=== PATIENT | female | born 1940 | race African-American/Black ===

== ENCOUNTER 2019-06-08 06:35 | Inpatient (IN) | payer BC, OTHER ==
[~2019-06-08] VITALS: Ht 170.2 cm; Wt 86.6 kg
[2019-06-08] VITALS (7 sets, daily range): BP systolic 106–180; BP diastolic 56–113
[2019-06-08 07:21] LABS: ABSOLUTE NEUTROPHILS 7.3 thou/uL (1.4-8.2); BASOPHILS 0.9 % (0.0-2.0); EOSINOPHILS 1.2 % (0.0-3.0); HEMATOCRIT 39.2 % (37.0-47.0); HEMOGLOBIN 12.7 gm/dL (12.0-15.0); LYMPHOCYTES 16.4 % (24.0-44.0); MCH 27.1 pg (26.0-34.0); MCHC 32.5 g/dL (28.0-37.0); MCV 83.3 fL (80.0-100.0); MONOCYTES 4.7 % (1.0-8.0); PLATELET COUNT 221 thou/uL (150-400); POLYS 76.8 % (36.0-66.0); RDW 15.4 % (10.5-14.5); WBC 9.5 thou/uL (4.0-11.0)
[2019-06-08 07:27] LABS: URINE BILIRUBIN NEGATIVE (Negative); URINE BLOOD 1+ (Negative); URINE CLARITY CLEAR; URINE COLOR YELLOW; URINE GLUCOSE-RANDOM* NEGATIVE (Negative); URINE KETONES NEGATIVE (Negative); URINE LEUKOCYTES-REFLEX NEGATIVE (Negative); URINE NITRITE-REFLEX NEGATIVE (Negative); URINE PROTEIN (DIPSTICK) NEGATIVE (Negative); URINE SPECIFIC GRAVITY 1.015 (1.005-1.035); URINE UROBILINOGEN 0.2 E.U./dl (0.2-1.0)
[2019-06-08 07:44] LABS: BACTERIA-REFLEX None Seen /HPF (None Seen); CASTS None Seen /LPF (None Seen); CRYSTALS None Seen /LPF (None Seen); SQUAMOUS None Seen /LPF (0-3); URINE RBC 3-10 Few /HPF (0-2); URINE WBC-REFLEX None Seen /HPF (0-5)
[2019-06-08 08:23] LABS: ALBUMIN 3.3 g/dL (3.4-5.0); CALCIUM 8.1 mg/dL (8.5-10.1); CREATININE 0.7 mg/dL (0.6-1.0); POTASSIUM 3.4 mmol/L (3.5-5.1); TOTAL BILIRUBIN 0.3 mg/dL (<0.1-1.0); TOTAL PROTEIN 7.3 g/dL (6.4-8.2)
--- NOTE | 2019-06-08 11:33 | EKG ---
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 : 1940 Requested By: Kentrell Beavers Order Number: [id number] MD: Greg Ortiz Measurements Intervals [place] Rate: 85 P: 35 WA: 189 QRS: 30 QRSD: 81 T: 55 QT: 359 QTc: 427 Interpretive Statements Sinus rhythm Probable left atrial enlargement Probable left ventricular hypertrophy Anterior Q waves, possibly due to LVH Compared to ECG 05/13/2003 17:04:49 Left ventricular hypertrophy now present Q waves now present Poor R-wave progression no longer present T-wave abnormality no longer present Electronically Signed On 06-08-2019 11:32:57 CDT by Greg Ortiz [email or web address] <ELECTRONICALLY SIGNED> By: Greg Ortiz MD 06/08/19 1132 [id number] Greg Ortiz MD /EPI
[2019-06-08 11:48] LABS: APTT 29.8 Seconds (24.5-32.8)
--- NOTE | 2019-06-08 13:58 | NUR ---
VAT CONSULTED FOR A CL FOR THIS PT IN THE ER. PT TO GO TO 247 WITH A AORTIC DISSECTION. 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
--- NOTE | 2019-06-08 16:13 | NUR ---
VAT CALLED FOR A CL FOR AORTIC DISSECTION AND ICU MEDS. 5FRTLPICC PLACED RUABRACHIAL SUCCESSFULLY WITH TIP AT THE CA[facility]. PLEASE SEE INSERTION N/I FOR DETAILS
--- NOTE | 2019-06-08 20:00 | NUR ---
Admission notes 1454-Pt came to ICU via cart. A-line site was oozing. Zeroed A-line and enforced the dressing. Pt was alert, oriented x 4. Followed commands appropriately and pleasantly. O2 sat 93 to 96% at RA. BP 140s. Esmolol was initiated as soon as pt arrived @50mcg/kg/min @1513. It was increased to 100 mcg @[address] Payton at bedside. Cardene was started @1546 @15mg, the max dose then was titrated based on BP. No edema was present. Pt used bedpan due to lines. PICC line was inserted @1530. Dr. Antonio was at bedside @1727. Pt ate dinner @1830 about 50%.
[2019-06-09] VITALS (17 sets, daily range): BP systolic 100–148; BP diastolic 55–92
--- NOTE | 2019-06-09 05:17 | NUR ---
ON ESMOLOL AND CARDENE GTTS FOR AORTIC DISSECTION TYPE B. GTTS TITRATED TO MAINTAIN SBP <110 AND HR <80. PT DENIES PAIN. WILL CONTINUE TO MONITOR AND FOLLOW THE PLAN OF CARE.
--- NOTE | 2019-06-09 07:56 | HC ---
[facility] [place] [address] CONSULTATION Name: CARMEL DUMONT Kris Room #: 247-P [facility] IN ..#: [id number] Admission: 06/08/19 Attend Phys: Maura So MD Discharge: Date of : 42 Report #: [id number] THIS REPORT FOR: //name// CC: FAM unknown Blaze Payton Maura So DATE OF SERVICE: 06/08/2019 We were asked to see the patient in the Emergency Department for question of aortic dissection. HISTORY OF PRESENT ILLNESS: The patient is a 79-year-old who noted the acute onset of epigastric discomfort at approximately 3:00 a.m. Over the course of the morning, the pain migrated to the back and continued to radiate around the torso anteriorly. The patient denies problems with focal weakness and there is no history of syncope or chest pain per se. CT scan shows intramural thrombus in the descending thoracic aorta with an area of penetrating ulcer, but no extravasation and no acute flap is noted. No impairment of visceral vessels is seen. The patient states that she has had back pain for which physical therapy has been recommended, but this is somewhat different than the discomfort that she had today. PAST MEDICAL HISTORY: The patient denies other medical diagnoses. The patient states she takes no medication at home. ALLERGIES: INCLUDE IODINE AND CIPRO. SOCIAL HISTORY: The patient is not a smoker. She is . No alcohol or recreational drug use. FAMILY HISTORY: Negative for aneurysm. REVIEW OF SYSTEMS: CONSTITUTIONAL: Negative for fever or chills. EYES: Negative for eye pain or visual change. HEENT: Negative for rhinorrhea or sore throat. RESPIRATORY: No shortness of breath described to me. No sputum production. CARDIAC: Denies chest pain or palpitation. GASTROINTESTINAL: Had some nausea earlier. No vomiting, no blood. MUSCULOSKELETAL: The back pain as described. No other bone or joint pain. SKIN: No rash or infection. GENITOURINARY: No burning, frequency, urgency. [facility] [address] [place] [address] CONSULTATION Name: CARMEL DUMONT Room #: 247-P [facility] IN [facility].#: [id number] Admission: 06/08/19 Attend Phys: Maura So MD Discharge: Date of : 42 Report #: [id number] ENDOCRINE: No goiter, no tremor. HEMATOLOGIC AND LYMPHATIC: No bruising or bleeding. PHYSICAL EXAMINATION: VITAL SIGNS: In the Emergency Department, blood pressure 180/113, heart rate 87, respiratory rate 18, temperature 36.4. GENERAL: The patient is lying in bed, seems to be in reasonable comfort. HEENT: Normocephalic. Pupils are round, equal. No icterus, no arcus. NECK: No mass, no bruit. CHEST: Clear to auscultation. HEART: Rhythm regular, no murmur. ABDOMEN: Soft, no mass. EXTREMITIES: No clubbing, cyanosis or edema. VASCULAR: 2 to 3+ popliteal pulses bilaterally. I do not feel distal pulses, but there is no vascular compromise. Radial pulses are 2+ bilaterally. MUSCULOSKELETAL: No asymmetry or deformity. NEUROLOGIC: No obvious motor or sensory dysfunction. PSYCHIATRIC: Oriented x3 and appropriate. ASSESSMENT: CT scan suggests at least a subacute or chronic dissection with possible penetrating ulcer in the descending thoracic aorta. At this point, I would recommend aggressive blood pressure control including placement of an arterial line and IV Cardene for blood pressure control and esmolol for heart rate control with transition to oral agents as soon as possible, but guided by the arterial line reading. If the patient has persistent pain despite aggressive and successful medical management then stent graft can be considered, but this has its own problems including always the risks of bleeding, infection, anesthesia, risks of surgery plus potential spinal artery disruption and neurologic sequela. All of this was reviewed with the patient and family and with Dr. So, we will follow. Thank you for the consult. <ELECTRONICALLY SIGNED> By: Blaze Payton MD 06/09/19 0756 1231 [id number] Blaze Payton MD /nt
--- NOTE | 2019-06-09 08:02 | NUR ---
Pt is alert, oriented x 4. No pain, nausea, or other concerns were voiced. Sat is 94%. SR w/ 1 Degree AVB w/ HR 70s. Esmolol & Cardene gtt in place. Pt got out of bed and sat on recliner this morning. Dr. Payton has been at bedside @9702. Will continue to monitor
[2019-06-10] VITALS (11 sets, daily range): BP systolic 108–157; BP diastolic 59–82
--- NOTE | 2019-06-10 10:20 | 2DMMODE ---
[facility] [address] [place] [address] 2 D/M-MODE ECHOCARDIOGRAM Name: CARMEL DUMONT Room #: 247-P [facility] IN ..#: [id number] Admission: 06/08/19 Attend Phys: Maura So Discharge: Date of : 42 Report #: [id number] THIS REPORT FOR: //name// APPROVED REPORT Study performed: 06/10/2019 08:12:26 EXAM: Comprehensive 2D, Doppler, and color-flow Echocardiogram Patient Location: Bedside Room #: [facility] BSA: 1.95 HR: 75 bpm BP: 136/77 mmHg Rhythm: NSR Other Information Study Quality: Adequate Indications dissection 2D Dimensions RVDd: 28.68 mm IVSd: 16.24 (7-11mm) LVOT Diam: 21.86 (18-24mm) LVDd: 37.58 mm PWd: 14.79 (7-11mm) Ascending Ao: 38.66 (22-36mm) LVDs: 27.38 (25-40mm) Aortic Root: 33.46 mm IVC: 15.00 mm Volumes Left Atrial Volume (Systole) Single Plane 4CH: 32.33 mL Single Plane 2CH: 42.26 mL LA ESV Index: 22.00 mL/m2 Aortic Valve AoV Peak Tung.: 1.54 m/s AO Peak Gr.: 9.46 mmHg LVOT Max P.07 mmHg LVOT Max V: 1.01 m/s ELLIOT Vmax: 2.46 cm2 Mitral Valve E/A Ratio: 0.7 MV Decel. Time: 232.71 ms MV E Max Tung.: 0.88 m/s [facility] [address] [place] [address] 2 D/M-MODE ECHOCARDIOGRAM Name: CARMEL DUMONT Room #: 247-P [facility] IN [facility]#: [id number] Admission: 06/08/19 Attend Phys: Maura So Discharge: Date of : 42 Report #: [id number] MV A Tung.: 1.19 m/s MV PHT: 67.49 ms IVRT: 100.35 ms Pulmonary Valve PV Peak Tung.: 0.90 m/s PV Peak Gr.: 3.28 mmHg Pulmonary Vein P Vein S: 0.66 m/s P Vein A: 0.30 m/s P Vein D: 0.52 m/s P Vein A Dur.: 117.6 msec P Vein S/D Ratio: 1.27 Tricuspid Valve TR Peak Tung.: 2.44 m/s RAP Estimate: 5.00 mmHg TR Peak Gr.: 23.84 mmHg PA Pressure: 29.00 mmHg Left Ventricle The left ventricle is normal size. Moderate concentric left ventricular hypertrophy. The left ventricular systolic function is normal. The left ventricular ejection fraction is within the normal range. LVEF is 65%. Mild diastolic dysfunction is present (impaired relaxation pattern). Right Ventricle The right ventricle is normal size. The right ventricular systolic function is normal. Atria The left atrium size is normal. The right atrium size is normal. Aortic Valve The aortic valve is normal in structure. No aortic regurgitation is present. There is no aortic valvular stenosis. Mitral Valve The mitral valve is normal in structure. Trace mitral regurgitation. No evidence of mitral valve stenosis. Tricuspid Valve The tricuspid valve is normal in structure. Trace tricuspid regurgitation. PAP is estimated at 29 mmHg Pulmonic Valve Pulmonic valve is not well visualized. [facility] [address] [place] [address] 2 D/M-MODE ECHOCARDIOGRAM Name: CARMEL DUMONT Room #: 247-P [facility] IN [facility].#: [id number] Admission: 06/08/19 Attend Phys: Maura So Discharge: Date of : 42 Report #: [id number] [employer] The aortic root is normal in size. The ascending aorta is mildly dilated at 3.9 cm. Aortic arch is mildly dilated at 4.2 cm. Aorticdilatation consistent with a dissection is present in descending aorta measuring 5 cm. IVC is normal in size and collapses >50% with inspiration. Pericardium There is no pericardial effusion. <Conclusion> The left ventricle is normal size. LVEF is 65%. The aortic valve is normal in structure. The mitral valve is normal in structure. Trace mitral regurgitation. The tricuspid valve is normal in structure. Trace tricuspid regurgitation. PAP is estimated at 29 mmHg Pulmonic valve is not well visualized. The aortic root is normal in size. The ascending aorta is mildly dilated at 3.9 cm. Aortic arch is mildly dilated at 4.2 cm. Aorticdilatation consistent with a dissection or aneurysm is present in descending aorta measuring 5 cm. There is no pericardial effusion. <ELECTRONICALLY SIGNED> By: Raymundo Hwang MD 06/10/19 1019 1019 1019 Raymundo Hwang MD /INF
--- NOTE | 2019-06-10 11:00 | NUR ---
Victorina DAN from cardiology called. RE BP goal met but HR remains 87.
[2019-06-10 15:04] LABS: CHOLESTEROL 147 mg/dL (<200); HDL CHOLESTEROL 72 mg/dL (>40); LDL CHOLESTEROL 66 mg/dL (<100); TRIGLYCERIDE 48 mg/dL (<150); VLDL 10 mg/dL (<40)
--- NOTE | 2019-06-10 18:00 | NUR ---
DR. CHISHOLM CALLED. RE T 101.5 ORALLY AND HR UP TO 102 ORDERS GIVEN.
--- NOTE | 2019-06-10 19:32 | NUR ---
KEEPING SBP < 130 AND HR < 70. dr. briceno aware hr staying in the 80s.
--- NOTE | 2019-06-10 21:20 | NUR ---
DR GUTHRIE HERE TO DISCUSS SURGERY TOMORROW. CONSENT SIGNED. PT DID NOT HAVE ANY FURTHER QUESTIONS AT THIS TIME. SEE [facility] FOR ASSESSMENT. CONT PLAN OF CARE
[2019-06-11] VITALS: BP 116/65
[2019-06-11 05:37] LABS: CALCIUM 9.1 mg/dL (8.5-10.1); CREATININE 0.9 mg/dL (0.6-1.0); POTASSIUM 3.4 mmol/L (3.5-5.1)
[2019-06-11 05:38] LABS: URINE BILIRUBIN NEGATIVE (Negative); URINE BLOOD TRACE (Negative); URINE CLARITY CLEAR; URINE COLOR YELLOW; URINE GLUCOSE-RANDOM* NEGATIVE (Negative); URINE KETONES NEGATIVE (Negative); URINE NITRITE-REFLEX NEGATIVE (Negative); URINE PROTEIN (DIPSTICK) TRACE (Negative); URINE SPECIFIC GRAVITY 1.015 (1.005-1.035); URINE UROBILINOGEN 0.2 E.U./dl (0.2-1.0)
[2019-06-11 05:41] LABS: HEMATOCRIT 37.3 % (37.0-47.0); MCH 26.8 pg (26.0-34.0); MCHC 32.1 g/dL (28.0-37.0); MCV 83.5 fL (80.0-100.0); PLATELET COUNT 240 thou/uL (150-400); RBC 4.47 mil/uL (4.20-5.00); RDW 15.2 % (10.5-14.5); WBC 12.5 thou/uL (4.0-11.0)
[2019-06-11 05:52] LABS: URINE LEUKOCYTES-REFLEX 1+ (Negative)
[2019-06-11 06:18] LABS: HYALINE CASTS 0-3 Few /LPF (None Seen); MUCUS 0-3 Light strn/LPF (None Seen)
[2019-06-11 06:19] LABS: BACTERIA-REFLEX 1-9 Few /HPF (None Seen); CRYSTALS None Seen /LPF (None Seen); FINE GRANULAR CASTS 0-3 Few /LPF (None Seen); SQUAMOUS 0-3 Few /LPF (0-3); URINE RBC 0-2 Rare /HPF (0-2)
[2019-06-11 07:37] LABS: ABSOLUTE NEUTROPHILS 9.9 thou/uL (1.4-8.2); ANISOCYTOSIS 1+
--- NOTE | 2019-06-11 09:34 | NUR ---
PATIENT LEFT UNIT AT 0934 TO PACU FOR SURGERY.
--- NOTE | 2019-06-11 13:26 | NUR ---
CM ASSESSMENT: CASE OPENED FOR DC PLANNING. CLINICAL INFO REVIEWED. PT ADMITS WITH HTN AND IMAGING NOTED ATHORACIC AORTIC DISSECTION. CTS CONSULTED AND PLANS FOR THORACIC AORTIC STENT GRAFT TODAY. 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 WILL FOLLOW POST OPERATIVE COURSE AND ASSIST WITH COORDINATION OF DC NEEDS.
--- NOTE | 2019-06-11 19:51 | NUR ---
ASSESSMENTS AND INTERVENTIONS DOCCUMENTED. PATIENT WENT FOR THORACIC SURGERY. PATIENT RETURNED TO THE ROOM AT ABOUT 1615. PATIENT ARRIVED AND WAS A&O X 4 ON 2L NC . PATIENT SITUATED AND CVP, ART AND LUMBAR DRAINAGE LEVELED AND ZEROED. PATIENT WAS EDUCATED ABOUT POST OP RESTRICTIONS. BACK OF PATIENT CHECKED FOR DRAINAGE, REDNESS OR EDEMA. SMALL BLOOD NOTED. SON CALLED TO BED SIDE. CVP LOW, MARIANA RN ADMINSITERED ALBUMIN. PATIENT RESTING AT THIS TIME. INVESTIGATOR WELFARE RN GIVEN REPORT.
[2019-06-11 21:00] VITALS: BP 150/66
[2019-06-11 23:00] VITALS: BP 139/66
[2019-06-12] VITALS (11 sets, daily range): BP systolic 143–174; BP diastolic 58–94
[2019-06-12 05:28] LABS: ABSOLUTE NEUTROPHILS 16.1 thou/uL (1.4-8.2); BASOPHILS 0.3 % (0.0-2.0); HEMATOCRIT 33.7 % (37.0-47.0); HEMOGLOBIN 10.8 gm/dL (12.0-15.0); LYMPHOCYTES 2.9 % (24.0-44.0); MCHC 32.2 g/dL (28.0-37.0); MCV 83.9 fL (80.0-100.0); MONOCYTES 8.5 % (1.0-8.0); PLATELET COUNT 190 thou/uL (150-400); POLYS 88.3 % (36.0-66.0); RBC 4.01 mil/uL (4.20-5.00); RDW 15.1 % (10.5-14.5); WBC 18.2 thou/uL (4.0-11.0)
--- NOTE | 2019-06-12 05:28 | NUR ---
PT AOX4. HOURLY NUERO CHECKS PERFORMED. FOLLOW COMMANDS AND ABLE TO MOVE EXTREMITIES. DENIES PAIN. DESATS DURING SLEEP, ON 2L NC CURRENTLY. LUMBAR DRAIN IN PLACE, ICP MONITORED AND DOCUMENTED. RIGHT ARTLINE IN PLACE, RIGHT FOREARM/HAND EDEMA NOTED. RIGHT GROIN SITE C/D/I, PT STATED THERE WAS TENDERS WHEN SITE WAS PALPATED. ON CARDENE GTT, TITRATED FOR BP CONTROL. NO COMPLAINS PRESENTLY. WILL CONTINUE TO MONITOR PT. PROGRESSING TOWARDS GOALS
[2019-06-12 05:38] LABS: ALBUMIN 2.6 g/dL (3.4-5.0); CALCIUM 8.3 mg/dL (8.5-10.1); CREATININE 0.7 mg/dL (0.6-1.0); MAGNESIUM 1.8 mg/dL (1.8-2.4); PHOSPHORUS 3.3 mg/dL (2.5-4.9); POTASSIUM 3.3 mmol/L (3.5-5.1); TOTAL BILIRUBIN 0.4 mg/dL (<0.1-1.0)
[2019-06-13] VITALS (22 sets, daily range): BP systolic 138–162; BP diastolic 58–71
[2019-06-13 05:45] LABS: CALCIUM 8.6 mg/dL (8.5-10.1); CREATININE 0.6 mg/dL (0.6-1.0); POTASSIUM 3.6 mmol/L (3.5-5.1)
[2019-06-13 05:56] LABS: HEMOGLOBIN 10.9 gm/dL (12.0-15.0); MCH 26.4 pg (26.0-34.0); MCHC 31.9 g/dL (28.0-37.0); MCV 82.9 fL (80.0-100.0); RBC 4.11 mil/uL (4.20-5.00); RDW 15.5 % (10.5-14.5); WBC 20.3 thou/uL (4.0-11.0)
--- NOTE | 2019-06-13 19:20 | NUR ---
PO MEDS INCREASED THIS SHIFT FOR BP CONTROL. BP ONLY CONTROLLED WITH SMALL AMOUNT OF CARDENE INFUSING. REMAINS ALERT/ORIENTED, ALL MOTOR SKILLS INTACT. PROGRESSING.
[2019-06-14] VITALS (10 sets, daily range): BP systolic 126–151; BP diastolic 60–77
--- NOTE | 2019-06-14 06:00 | NUR ---
NO OVERNIGHT EVENTS. PT REMAINS ON CARDENE GTT IN ORDER TO MAINTAIN SBP 110-130. HYDRALAZINE GIVEN ONCE, HAD NO EFFECT ON BP.
[2019-06-14 06:44] LABS: CALCIUM 8.8 mg/dL (8.5-10.1); CREATININE 0.6 mg/dL (0.6-1.0); POTASSIUM 3.9 mmol/L (3.5-5.1)
--- NOTE | 2019-06-14 09:24 | NUR ---
Nutrition: pt seen for early LOS. Admit with HTN, thoracic aortic dissection. S/P thoracic aortic stent graft. No significant PMH. Stable wts. Appetite is fair, <50% of most meals documented. Pt does not typically eat lunch rather just a protein drink at home. Agrees to ensure max on lunch trays. Reveiwed overall good nutrition and educated on menu ordering. Low risk.
[2019-06-14 11:38] LABS: HEMATOCRIT 33.1 % (37.0-47.0); HEMOGLOBIN 10.5 gm/dL (12.0-15.0); MCH 26.6 pg (26.0-34.0); MCHC 31.7 g/dL (28.0-37.0); MCV 83.9 fL (80.0-100.0); PLATELET COUNT 229 thou/uL (150-400); RBC 3.94 mil/uL (4.20-5.00); RDW 15.6 % (10.5-14.5); WBC 17.2 thou/uL (4.0-11.0)
[2019-06-14 12:05] LABS: ABSOLUTE NEUTROPHILS 13.2 thou/uL (1.4-8.2)
[2019-06-14 12:06] LABS: ANISOCYTOSIS 1+
[2019-06-15] VITALS (26 sets, daily range): BP systolic 120–185; BP diastolic 27–87
[2019-06-15 05:52] LABS: HEMATOCRIT 30.9 % (37.0-47.0); HEMOGLOBIN 10.1 gm/dL (12.0-15.0); MCH 27.1 pg (26.0-34.0); MCHC 32.7 g/dL (28.0-37.0); MCV 82.8 fL (80.0-100.0); PLATELET COUNT 237 thou/uL (150-400); RBC 3.73 mil/uL (4.20-5.00); RDW 15.2 % (10.5-14.5); WBC 12.6 thou/uL (4.0-11.0)
[2019-06-15 06:06] LABS: ALBUMIN 2.1 g/dL (3.4-5.0); CALCIUM 8.4 mg/dL (8.5-10.1); CREATININE 0.6 mg/dL (0.6-1.0); POTASSIUM 3.9 mmol/L (3.5-5.1); TOTAL BILIRUBIN 0.6 mg/dL (<0.1-1.0); TOTAL PROTEIN 6.7 g/dL (6.4-8.2)
[2019-06-15 06:31] LABS: ABSOLUTE NEUTROPHILS 9.5 thou/uL (1.4-8.2); MYELOCYTES 1 %
--- NOTE | 2019-06-15 07:32 | NUR ---
PT REMAINS ON CARDENE GTT TO MAINTAIN SBP 110-130. NO OVERNIGHT EVENTS. WILL CONTINUE TO MONITOR.
--- NOTE | 2019-06-15 07:50 | NUR ---
sapna infusing 3mg/hr with sbp goal 110-130. r jose consistently reading lower than nibp. up in chair for breakfast.
--- NOTE | 2019-06-15 10:00 | NUR ---
sapna titrated off. jose rosas.
--- NOTE | 2019-06-15 18:45 | NUR ---
DR. GLYNN PRESENT, JONES CORRELATING WITH NIBP WHEN ON R ARM. SINCE OFF CARDENE, JONES DC'D AND PT TO REMAIN IN ICU FOR CLOSE OBSERVATION. BP CONTROLLED. MIGUEL DC'D PER ORDER, THEN PT VOIDED 3 ADDITIONAL TIMES. RESTED COMFORTABLY IN CHAIR PER HER PREFERENCE. PROGRESSING.
[2019-06-16] VITALS (22 sets, daily range): BP systolic 125–169; BP diastolic 64–91
--- NOTE | 2019-06-16 05:00 | NUR ---
ASSUMED PT CARE AROUND 2330. PT HAS SLEPT MOST OF THE NIGHT. RESP EVEN AND UNLABORED. VSS. PRN HYDRALAZINE GIVEN ONCE THIS SHIFT FOR ELEVATED BP. BP HAS IMPROVED. UP W/ ASSIST TO TOILET. TOLERATED WELL. NO BM THIS SHIFT BUT PT IS PASSING LOTS OF FLATUS. FALL PRECAUTIONS IN PLACE. PROGRESSING TOWARD POC GOALS. WILL CONTINUE TO MONITOR FURTHER.
--- NOTE | 2019-06-16 06:35 | NUR ---
ASSUMED CARE OF PT. AT 1900. NO NEW CHANGES. REPORT GIVEN TO MYKE DORADO. PT. PROGRESSING TOWARDS GOALS.
[2019-06-17] VITALS (12 sets, daily range): BP systolic 129–154; BP diastolic 74–95
--- NOTE | 2019-06-17 04:41 | NUR ---
NO OVERNIGHT EVENTS. BP MAINTAINED BETWEEN 110'S-130'S. PT. PROGRESSING TOWARDS GOALS. PT. HOPING TO DISCHARGE TODAY.
[2019-06-17 11:23] LABS: HEMATOCRIT 32.4 % (37.0-47.0); HEMOGLOBIN 10.4 gm/dL (12.0-15.0); MCH 26.7 pg (26.0-34.0); MCHC 32.2 g/dL (28.0-37.0); MCV 82.9 fL (80.0-100.0); RBC 3.91 mil/uL (4.20-5.00); RDW 15.6 % (10.5-14.5); WBC 12.6 thou/uL (4.0-11.0)
[2019-06-17 11:33] LABS: ALBUMIN 2.5 g/dL (3.4-5.0); CALCIUM 9.5 mg/dL (8.5-10.1); CREATININE 0.7 mg/dL (0.6-1.0); POTASSIUM 4.2 mmol/L (3.5-5.1); TOTAL BILIRUBIN 0.4 mg/dL (<0.1-1.0); TOTAL PROTEIN 7.6 g/dL (6.4-8.2)
[2019-06-17 12:11] LABS: TSH 1.945 uIU/mL (0.358-3.740)
[2019-06-17] MEDS ORDERED: DIGOXIN250 MCG PO (12:29)
[2019-06-17] MEDS ORDERED: NORVASC5 MG PO (12:30)
[2019-06-17] MEDS ORDERED: HYDRALAZINE 2525 MG PO (12:30)
[2019-06-17] MEDS ORDERED: BYSTOLIC10 MG PO (12:30)
[2019-06-17] MEDS ORDERED: MAGNESIUM400 MG PO (12:31)
[2019-06-17] MEDS ORDERED: BENICAR40 MG PO (12:31)
[2019-06-17] MEDS ORDERED: PEPCID20 MG PO (12:32)
[2019-06-17] MEDS ORDERED: SPIRONOLACTONE25 M1 PO (12:32)
[2019-06-17] MEDS ORDERED: ASPIRIN81 M2 PO (12:33)
[2019-06-17 14:29] LABS: % SATURATION 13 % (20-39); IRON 25 ug/dL (50-170); TIBC 193 ug/dL (250-450)
[2019-06-18 08:09] LABS: GLYCOHEMOGLOBIN (HGB A1C) 6.6 % (4.8-5.6)
--- NOTE | 2019-06-18 15:57 | HC ---
[facility] [place] [address] CONSULTATION Name: CARMEL DUMONT Room #: 246-P [facility] IN ..#: [id number] Admission: 06/08/19 Attend Phys: Maura So MD Discharge: 06/17/19 Date of : 42 Report #: [id number] THIS REPORT FOR: //name// CC: FAM unknown Blaze Payton Maura So CARDIOLOGY CONSULTATION REASON FOR CONSULTATION: Type B aortic dissection. HISTORY OF PRESENT ILLNESS: The patient is a 79-year-old with no past medical history who presents with new-onset abdominal pain radiating to the back. She had a CT scan in the Emergency Room showing that she has a type B aortic dissection that initiates distal left subclavian, extends down to the level of the celiac artery. She has been seen by CT surgery, who has recommended medical therapy. She currently denies any chest pain or chest tightness. She denies any shortness of breath. She denies PND or orthopnea. She reports that her abdominal pain has improved. REVIEW OF SYSTEMS: A 12-point review of systems was performed, otherwise was negative other than what I mentioned above. PAST MEDICAL HISTORY: None. MEDICATIONS: None. SOCIAL HISTORY: Does not smoke. FAMILY HISTORY: Noncontributory. ALLERGIES: Include; 1. CIPRO. 2. IODINE. PHYSICAL EXAMINATION: VITAL SIGNS: Temperature is 36.4, pulse 81, respiration 16, blood pressure 135/73, sats 97%. GENERAL: She is alert and oriented x 3, in no acute distress. HEENT: Oropharynx is clear. Mucous membranes are moist. Sclerae are anicteric. NECK: Supple, with no thyromegaly. HEART: Regular rate and rhythm with no murmurs, rubs or gallops. LUNGS: Clear to auscultation bilaterally. ABDOMEN: Soft, nontender, nondistended with no hepatosplenomegaly. EXTREMITIES: There is no clubbing, cyanosis, edema. Her pulses are 2+ throughout. [facility] [address] [place] [address] CONSULTATION Name: CARMEL DUMONT Room #: [address] [place] [address] [place] [facility].#: [id number] Admission: 06/08/19 Attend Phys: Maura So MD Discharge: 06/17/19 Date of : 42 Report #: [id number] NEUROLOGIC: Cranial nerves 2-12 are intact. LABORATORY DATA: INR is 1. Potassium 3.4, creatinine 0.7. White count 9, hemoglobin 12, platelets 221. Troponin is negative x 1. Her 12-lead EKG shows sinus rhythm with no ischemic changes. Chest x-ray shows no acute process. CT scan is as mentioned above. ASSESSMENT: 1. Hypertensive emergency. 2. Type B aortic dissection. PLAN: We will continue with the current antihypertensive regimen and continue to treat medically. CT Surgery will continue to follow and dictate any further invasive procedures required. <ELECTRONICALLY SIGNED> By: Greg Ortiz MD 06/18/19 5989 1736 0630 Greg Ortiz MD /nt
--- NOTE | 2019-06-20 13:11 | O ---
[facility] [place] [address] OPERATIVE REPORT Name: CARMEL DUMONT Room #: 246-P [facility] IN M.R.#: [id number] Admission: 06/08/19 Attend Phys: Maura So MD Discharge: 06/17/19 Date of : 42 Report #: [id number] THIS REPORT FOR: //name// CC: FAM unknown Blaze So DATE OF SERVICE: 06/11/2019 PREOPERATIVE DIAGNOSIS: Intramural hematoma of the descending thoracic aorta with penetrating ulcer. 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 OPERATION: Stent graft implant for thoracic aortic problem with intraoperative arteriograms. SURGEONS: Dr. Blaze Payton and Yamil Romero MD ANESTHESIA: General. INDICATIONS: The patient is a 79-year-old with a symptomatic descending thoracic aortic intramural hematoma with penetrating ulcer. The patient was admitted in a hypertensive crisis with chest pain on Monday and blood pressure and heart rate were controlled with medication and symptoms resolved; however, the CT scan showed what was considered an ominous penetrating ulcer with hematoma that was difficult to gauge in terms of its chronicity and the intramural hematoma extended nearly from the left subclavian to the celiac axis, but in the midportion, it was the largest where the penetrating ulcer occurred and we felt that to protect the patient from possible rupture of that stent graft implant was appropriate. FINDINGS AND TECHNIQUE: After general anesthesia was established, an incision was made in the right groin to expose the common femoral artery. A 10,000 units of heparin were given through the right side. Femoral access was obtained and over guidewire and introducer was placed. Femoral cutdown was made and the introducer was swapped out for the 24-Malagasy sheath. Through the sheath, the arteriogram was taken that showed the origin of the left subclavian artery. We used this to determine our position for the 40 x 20 cm thoracic aortic stent graft. This was deployed over a Lunderquist wire. Our initial deployment was a bit aggressive and we used the Tri-Lobe balloon to withdraw the stent graft short distance, but this gave us better protection of the common origin of the bovine type innominate artery. [facility] [address] [place] [address] OPERATIVE REPORT Name: CARMEL DUMONT Kris Room #: 246-P [facility] IN .R.#: [id number] Admission: 06/08/19 Attend Phys: Maura So MD Discharge: 06/17/19 Date of : 42 Report #: [id number] Satisfied with the deployment of the proximal device, the distal device was placed. Once again, all catheters were swapped out so that we could identify the celiac axis with a visceral catheter and this visualization allowed us to place the second device a 45 mm x 20 cm device in the distal thoracic aorta landing just above the celiac axis. This deployment was satisfactory and there was good overlap between the two components in the midportion. The second deployment was also done over the Lunderquist wire. Satisfied with our graft position, the pigtail catheter was then advanced through the devices into the proximal ascending and an arteriogram was taken. This showed good position of the graft with protection of the innominate common origin and no significant endoleak and good overlap. Satisfied with our arteriogram, the catheter was removed. The dilator was replaced into the large sheath and this was withdrawn and then the guidewire was withdrawn. The femoral artery was repaired with interrupted Prolene and a good antegrade flow was ascertained. Heparin was reversed with protamine and hemostasis was ascertained and the wound was closed in layers. The patient was taken to the recovery area in good condition with distal pulses palpable. All counts were reported as correct. <ELECTRONICALLY SIGNED> By: Blaze Payton MD 06/20/19 1311 0637 0651 Blaze Payton MD /nt
== END 2019-06-17 15:15 | disposition home or self-care (01) | DRG 219 ==
LOC: ER 06:35 → ICU 12:12 → EROBS 12:12 → ICU 13:50
PROVIDERS: Emergency Medicine; Internal Medicine; Nurse Practitioner; Nurse Practitioner Adult Health; Surgery Vascular Surgery; ADMIT Internal Medicine
DX: I16.1 Hypertensive emergency (principal); I71.01 Dissection of thoracic aorta; I10 Essential (primary) hypertension; I71.2 Thoracic aortic aneurysm, without rupture; I51.3 Intracardiac thrombosis, not elsewhere classified; E78.5 Hyperlipidemia, unspecified; E78.00 Pure hypercholesterolemia, unspecified; D64.9 Anemia, unspecified; R74.8 Abnormal levels of other serum enzymes; E66.3 Overweight; Z68.29 Body mass index [BMI] 29.0-29.9, adult; Z79.899 Other long term (current) drug therapy; Z88.1 Allergy status to other antibiotic agents; Z91.041 Radiographic dye allergy status; Z23 Encounter for immunization
CPT/HCPCS: 10078; 27000; 47375; 48888; 50010; 50101; 50386; 51078; 51301; 51751; 54118; 56524; 56526; 56531; 57093; 62110; 62900; 65040; 70005

== ENCOUNTER → 2019-07-15 | Outpatient (CLI) | payer BC, OTHER ==
[~2019-07-15] MED LIST: ASPIRIN81 M2 PO; BENICAR40 MG PO; BYSTOLIC10 MG PO; DIGOXIN250 MCG PO; HYDRALAZINE 2525 MG PO; MAGNESIUM400 MG PO; NORVASC5 MG PO; PEPCID20 MG PO; SPIRONOLACTONE25 M1 PO
[2019-07-15 07:35] LABS: CREATININE 0.8 mg/dL (0.6-1.0)
== END ==
LOC: CAT 06:56
PROVIDERS: Nuclear Medicine Nuclear Cardiology
DX: I71.1 Thoracic aortic aneurysm, ruptured (principal); I25.10 Atherosclerotic heart disease of native coronary artery without angina pectoris; R91.1 Solitary pulmonary nodule; Z98.890 Other specified postprocedural states; Z86.79 Personal history of other diseases of the circulatory system

== ENCOUNTER → 2020-01-20 | Outpatient (CLI) | payer OTHER | LOC: SJCVC 11:27 | PROVIDERS: ATTEND Internal Medicine Cardiovascular Disease | DX: R94.31 Abnormal electrocardiogram [ECG] [EKG] (principal); R00.1 Bradycardia, unspecified; I71.2 Thoracic aortic aneurysm, without rupture; E78.00 Pure hypercholesterolemia, unspecified; I10 Essential (primary) hypertension; R06.02 Shortness of breath; Z95.828 Presence of other vascular implants and grafts; Z79.899 Other long term (current) drug therapy ==

== ENCOUNTER → 2020-02-25 | Outpatient (CLI) | payer OTHER | LOC: SJCVCIMAG 02-04 09:22 | PROVIDERS: ATTEND Nuclear Medicine Nuclear Cardiology | DX: R00.1 Bradycardia, unspecified (principal); I71.2 Thoracic aortic aneurysm, without rupture; I71.01 Dissection of thoracic aorta; I71.4 Abdominal aortic aneurysm, without rupture; I10 Essential (primary) hypertension; E78.5 Hyperlipidemia, unspecified; Z95.828 Presence of other vascular implants and grafts; Z79.82 Long term (current) use of aspirin; Z79.899 Other long term (current) drug therapy; Z91.041 Radiographic dye allergy status; Z88.8 Allergy status to other drugs, medicaments and biological substances ==

== ENCOUNTER → 2020-08-18 | Outpatient (CLI) | payer OTHER | LOC: SJCVCIMAG 08:29 | PROVIDERS: ATTEND Nuclear Medicine Nuclear Cardiology | DX: I65.23 Occlusion and stenosis of bilateral carotid arteries (principal); I71.01 Dissection of thoracic aorta; I71.4 Abdominal aortic aneurysm, without rupture; I10 Essential (primary) hypertension; Z79.899 Other long term (current) drug therapy ==

== ENCOUNTER → 2020-10-23 | Outpatient (CLI) | payer OTHER | LOC: SJCVC 10:08 | PROVIDERS: ATTEND Internal Medicine Cardiovascular Disease | DX: R94.31 Abnormal electrocardiogram [ECG] [EKG] (principal); I71.01 Dissection of thoracic aorta; I10 Essential (primary) hypertension; E78.00 Pure hypercholesterolemia, unspecified; I71.2 Thoracic aortic aneurysm, without rupture; I65.23 Occlusion and stenosis of bilateral carotid arteries; Z88.1 Allergy status to other antibiotic agents; Z88.8 Allergy status to other drugs, medicaments and biological substances; Z79.82 Long term (current) use of aspirin; Z79.899 Other long term (current) drug therapy; Z95.5 Presence of coronary angioplasty implant and graft ==

== ENCOUNTER → 2021-02-16 | Outpatient (CLI) | payer OTHER ==
[2021-02-16 11:39] LABS: CALCIUM 8.9 mg/dL (8.5-10.1)
== END ==
LOC: SJCVCIMAG 07:50
PROVIDERS: Nuclear Medicine Nuclear Cardiology; ATTEND Internal Medicine Cardiovascular Disease
DX: I34.0 Nonrheumatic mitral (valve) insufficiency (principal); I27.20 Pulmonary hypertension, unspecified; R94.31 Abnormal electrocardiogram [ECG] [EKG]; I44.0 Atrioventricular block, first degree; I71.2 Thoracic aortic aneurysm, without rupture; I71.4 Abdominal aortic aneurysm, without rupture; I10 Essential (primary) hypertension; E78.00 Pure hypercholesterolemia, unspecified; I71.01 Dissection of thoracic aorta; I65.23 Occlusion and stenosis of bilateral carotid arteries; E78.5 Hyperlipidemia, unspecified; Z95.828 Presence of other vascular implants and grafts; Z88.8 Allergy status to other drugs, medicaments and biological substances; Z79.82 Long term (current) use of aspirin; Z79.899 Other long term (current) drug therapy; Z82.49 Family history of ischemic heart disease and other diseases of the circulatory system

== ENCOUNTER → 2021-02-16 | Outpatient (CLI) | payer OTHER | LOC: CAT 11:39 | PROVIDERS: ATTEND Nuclear Medicine Nuclear Cardiology | DX: I71.4 Abdominal aortic aneurysm, without rupture (principal); I70.0 Atherosclerosis of aorta; I70.8 Atherosclerosis of other arteries; R91.8 Other nonspecific abnormal finding of lung field ==